=== PATIENT | female | born 1950 | race Caucasian/White ===

== ENCOUNTER → 2017-12-11 10:11 | Outpatient (CLI) | payer OTHER, SELFPAY ==
[2017-12-11 10:38] LABS: Add Manual Diff / Slide Review NO; Basophils Percent Auto 1.2 % (0-2); Eosinophils Percent Auto 9.1 % (2-4); Hematocrit 25.8 % (36-46); Hemoglobin 8.1 g/dL (12.0-16.0); Lymphocytes Percent Auto 20.8 % (25-40); Mean Corpuscular HGB Conc 31.6 % (30-36); Mean Corpuscular Hemoglobin 21.7 PG (26-34); Mean Corpuscular Volume 68.7 fL (80-100); Monocytes Percent Auto 7.5 % (3-14); Neutrophils Absolute Auto 4300 /uL (3000-5900); Neutrophils Percent Auto 61.4 % (50-75); Platelet Count 399 X10^3/uL (150-400); Red Blood Cell Count 3.75 X10^6/uL (4.0-5.2); Red Cell Distribution Width 15.8 % (11.6-14.8)
[2017-12-11 11:50] LABS: Anisocytosis 1+; Hypochromasia 2+; Poikilocytosis 2+; Target Cells 2+
== END ==
PROVIDERS: Family Provider Physician Assistant; PCP Physician Assistant; Visit Provider Physician Assistant
DX: D64.9 Anemia, unspecified (principal)
CPT/HCPCS: 36415; 85025

== ENCOUNTER → 2017-12-14 09:24 | Outpatient (CLI) | payer OTHER, SELFPAY ==
[2017-12-14 10:32] LABS: Add Manual Diff / Slide Review NO; Basophils Percent Auto 0.5 % (0-2); Eosinophils Percent Auto 4.7 % (2-4); Hematocrit 25.5 % (36-46); Lymphocytes Percent Auto 17.8 % (25-40); Mean Corpuscular HGB Conc 31.5 % (30-36); Mean Corpuscular Hemoglobin 21.6 PG (26-34); Mean Corpuscular Volume 68.7 fL (80-100); Monocytes Percent Auto 7.4 % (3-14); Neutrophils Absolute Auto 6200 /uL (3000-5900); Neutrophils Percent Auto 69.6 % (50-75); Platelet Count 411 X10^3/uL (150-400); Red Blood Cell Count 3.72 X10^6/uL (4.0-5.2); White Blood Cell Count 8.8 X10^3/uL (4.5-11.0)
[2017-12-14 10:56] LABS: Anisocytosis 1+; Ovalocytes 1+; Poikilocytosis 1+
[2017-12-14 10:58] LABS: HEMOLYSIS < 15 (0-50); Iron 14 ug/dL (37-170)
[2017-12-14 11:09] LABS: Percent Iron Saturation 3 % (15-50); Total Iron Binding Capacity 442 ug/dL (265-497); Transferrin 360 mg/dL (206-381)
== END ==
PROVIDERS: PCP Physician Assistant; Visit Provider Physician Assistant
DX: D64.9 Anemia, unspecified (principal)
CPT/HCPCS: 36415; 83540; 83550; 85025

== ENCOUNTER → 2018-01-09 10:17 | Outpatient (CLI) | payer OTHER, SELFPAY ==
[2018-01-09 11:24] LABS: Hematocrit 30.6 % (36-46); Hemoglobin 9.8 g/dL (12.0-16.0); Mean Corpuscular Hemoglobin 23.2 PG (26-34); Mean Corpuscular Volume 72.5 fL (80-100); Platelet Count 431 X10^3/uL (150-400); Red Blood Cell Count 4.22 X10^6/uL (4.0-5.2); Red Cell Distribution Width 25.1 % (11.6-14.8); White Blood Cell Count 5.8 X10^3/uL (4.5-11.0)
[2018-01-09 11:41] LABS: Add Manual Diff / Slide Review YES
[2018-01-09 12:04] LABS: Neutrophils Absolute Manual 3654 /uL (3000-5900); Total Cells Counted 100
[2018-01-09 12:05] LABS: Anisocytosis 2+
[2018-01-09 12:06] LABS: Hypochromasia 2+
[2018-01-09 12:07] LABS: Poikilocytosis 1+
== END ==
PROVIDERS: Family Provider Physician Assistant; PCP Physician Assistant; Visit Provider Physician Assistant
DX: D64.9 Anemia, unspecified (principal)
CPT/HCPCS: 36415; 85025

== ENCOUNTER → 2018-05-23 14:36 | Outpatient (CLI) | payer MEDICARE, SELFPAY ==
[2018-05-23 15:20] LABS: Add Manual Diff / Slide Review NO; Eosinophils Percent Auto 3.2 % (2-4); Hematocrit 28.9 % (36-46); Hemoglobin 9.5 g/dL (12.0-16.0); Lymphocytes Percent Auto 25.9 % (25-40); Mean Corpuscular HGB Conc 32.8 % (30-36); Mean Corpuscular Hemoglobin 24.8 PG (26-34); Mean Corpuscular Volume 75.6 fL (80-100); Monocytes Percent Auto 7.7 % (3-14); Neutrophils Absolute Auto 4400 /uL (1500-7000); Neutrophils Percent Auto 62.2 % (50-75); Platelet Count 343 X10^3/uL (150-400); Red Blood Cell Count 3.82 X10^6/uL (4.0-5.2); Red Cell Distribution Width 14.6 % (11.6-14.8)
[2018-05-23 15:31] LABS: Alanine Aminotransferase 23 IU/L (9-52); Albumin 4.2 g/dL (3.5-5.0); Albumin Globulin Ratio 1.6 (1.0-2.8); Alkaline Phosphatase 79 U/L (38-126); Aspartate Aminotransferase 20 IU/L (14-36); Bilirubin Total 0.3 mg/dL (0.2-1.3); Blood Urea Nitrogen 24 mg/dL (7-17); Calcium 9.1 mg/dL (8.4-10.2); Carbon Dioxide 28 mmol/L (22-32); Chloride 98 mmol/L (98-107); Estimated Glomerular Filt Rate 55.1 mL/min (>60); Globulin 2.6 g/dL (1.7-4.1); Glucose 178 mg/dL (80-110); HEMOLYSIS < 15 (0-50); Potassium 4.7 mmol/L (3.4-5.1); Sodium 138 mmol/L (137-145); Total Protein 6.8 g/dL (6.3-8.2)
[2018-05-23 15:58] LABS: HEMOLYSIS < 15 (0-50); Iron 24 ug/dL (37-170)
[2018-05-23 16:09] LABS: Percent Iron Saturation 6 % (15-50); Total Iron Binding Capacity 426 ug/dL (265-497); Transferrin 358 mg/dL (206-381)
== END ==
PROVIDERS: Family Provider Physician Assistant; PCP Physician Assistant; Visit Provider Physician Assistant
DX: I10 Essential (primary) hypertension (principal); D64.9 Anemia, unspecified
CPT/HCPCS: 36415; 80053; 83540; 83550; 85025

== ENCOUNTER 2018-07-16 11:20 | Day surgery (SDC) | payer MEDICARE, SELFPAY ==
[2018-07-16 12:09] VITALS: BP 147/83; PULSE 85; RESP 16; TEMP 37.2; O2SAT 99; BMI 33.5
--- NOTE | 2018-07-16 13:58 | PM.HP.1 ---
History of Present Illness Date Patient Seen: 07/16/18 Time Patient Seen: 13:58 Chief complaint: Colonoscopy [id number] Narrative: Tamra is a wonderful 67-year-old lady who is here for screening colonoscopy. She reports that she has had polyps in the past. Her last colonoscopy was about 12 years ago. Initially, she has had difficulty with anemia in the past several months. She has been treated with iron and has improved significantly. She denies any visible blood in her stool. She denies any change in her bowel habits. She has recently joined weight [employer] in an effort to improve her health and says she feels quite well. Patient History Social History household members: children Family & Social History Social History: household members children Review of Systems Review of Systems All systems reviewed & are unremarkable except as noted in HPI and below Exam Vital Signs (past 8 hours): - 07/16/18 12:09 Temperature 99.0 F Pulse Rate 85 Respiratory Rate 16 Blood Pressure 147/83 H Pulse Oximetry 99 Oxygen Delivery Method Room Air Narrative Exam Narrative: Very pleasant lady in no obvious distress HEENT: Normocephalic and atraumatic, pupils equal round reactive to light accommodation with anicteric sclera lungs: Clear to auscultation bilaterally heart: Regular rate and rhythm without murmur rub or gallop abdomen: Soft, nontender, active bowel sounds extremities: Warm and well perfused and without edema Assessment & Plan Assessment & Plan narrative: Pleasant 67-year-old lady with a personal history of colon polyps and recent problem with anemia who is here for colonoscopy. We discussed the risks and benefits of the procedure the patient expressed desire to complete it today.
[2018-07-16] MEDS: ONDANSETRON 4 MG/2 ML INJ IV (14:10)
[2018-07-16] MEDS: MIDAZOLAM 5 MG/5 ML VIAL IV (14:35)
[2018-07-16] MEDS: fentaNYL 250 MCG/5 ML INJ IV (14:36)
--- NOTE | 2018-07-16 14:44 | PM.OP.1 ---
Operative Date/Time/Diagnoses Date of procedure: 07/16/18 Time of procedure: 14:44 Pre-op diagnosis: Personal history of colon polyp Anemia Post-op diagnosis: same Procedure & Clinicians Procedure: Colonoscopy to the cecum Same procedure as scheduled: Yes Indications: Last colonoscopy approximately 10 years ago Surgeon: Fernanda Scruggs Anesthesia Type: Sedation ( Versed 12 mg; fentanyl 300 mcg) Operative Notes Findings: 1. Excellent prep 2. No polyps or mass lesions 3. Diverticulosis from the colorectal junction to 60 cm from the anal verge. Mixture of large and small pockets with some false passages. No evidence of inflammation. 4. Normal-appearing mucosa without explanation for anemia 5. Grade 1-2 internal hemorrhoids Closure Type: not applicable Specimen(s): none sent Estimated Blood Loss (mL): 0 Procedure in detail: After obtaining informed consent, the patient was brought to the GI suite and placed in the left lateral decubitus position on the examination table. After placement of appropriate monitors, the patient was given incremental doses of Versed and Fentanyl until an appropriate level of sedation was achieved. A time out was held per SCOAP protocol. A digital rectal examination was performed and did not reveal any masses or obstructing lesions. The colonoscope was gently passed into the patient's anus and the entire colon navigated to the level of the cecum with minimal difficulty. Once in the cecum, the scope was withdrawn being sure to go before and beyond all mucosal folds and prominences and get an excellent examination. The findings are noted above. At the level of the rectal vault, the scope was retroflexed and the internal anal canal was examined. The scope was straightened and air aspirated from the colon. The instrument was removed from the patient's body and the procedure was concluded. The patient was allowed to awaken from sedation without difficulty and taken to the post-anesthesia care unit in good condition. total sedation time was 34 min total colonoscopy withdrawal time was 9 min Complications: none Condition: stable Disposition: PACU Plan for aftercare: 1. Discharge to home 2. Plan for next colonoscopy in 5 years due to the patient's history of polyps.
[2018-07-16 14:46] VITALS: BP 127/66; PULSE 80; RESP 12; TEMP 36.9; O2SAT 96
[2018-07-16 14:52] VITALS: BP 118/82; PULSE 82; RESP 15; O2SAT 96
[2018-07-16 14:56] VITALS: BP 121/79; PULSE 80; RESP 16; O2SAT 98
[2018-07-16 15:03] VITALS: BP 110/70; PULSE 83; RESP 15; TEMP 36.6; O2SAT 95
== END 2018-07-16 15:15 | disposition home or self-care (01) ==
PROVIDERS: PCP Physician Assistant; Visit Provider Surgery
PROC: 0DJD8ZZ Inspection of Lower Intestinal Tract, Via Natural or Artificial Opening Endoscopic (ICD-10-PCS; CPT 45378; principal; 2018-07-16 14:00)
DX: Z86.010 Personal history of colon polyps (principal); D64.9 Anemia, unspecified; K57.30 Diverticulosis of large intestine without perforation or abscess without bleeding; K64.1 Second degree hemorrhoids
CPT/HCPCS: G0105; 99152; 99153; J2250; J2405; J3010

== ENCOUNTER → 2018-07-30 12:12 | Outpatient (CLI) | payer MEDICARE, SELFPAY ==
--- NOTE | 2018-07-30 | DI.MG.S_ITS ---
BILATERAL DIGITAL SCREENING MAMMOGRAM 3D/2D WITH CAD: 07/30/2018 CLINICAL: Routine screening. Comparison is made to exams dated: 06/22/2017 mammogram, 06/14/2016 mammogram, and 04/01/2015 mammogram - [facility]. There are scattered fibroglandular elements in both breasts. Current study was also evaluated with a Computer Aided Detection (CAD) system. There are benign calcifications in both breasts. No significant masses, calcifications, or other findings are seen in either breast. There has been no significant interval change. IMPRESSION: There is no mammographic evidence of malignancy. A 1 year screening mammogram is recommended. This exam was interpreted at Station ID: [id number]. NOTE: For mammograms, a report in lay terms will be sent to the patient. Approximately 15% of breast malignancies will not be visualized mammographically. In the management of a palpable breast mass, a negative mammogram must not discourage biopsy of a clinically suspicious lesion. Electronically Signed By: Manan cuenca/lore:07/30/2018 17:17:32 letter sent: Normal Exam ACR BI-RADS Category 2: Benign Finding(s) 3342F
== END ==
PROVIDERS: PCP Physician Assistant; Visit Provider Physician Assistant
DX: Z12.31 Encounter for screening mammogram for malignant neoplasm of breast (principal)
CPT/HCPCS: 77063; 77067

== ENCOUNTER 2020-03-16 18:19 | Emergency (ER) | payer MEDICARE, SELFPAY ==
[2020-03-16] VITALS (11 sets, daily range): BP systolic 113–123; BP diastolic 66–78; PULSE 90–108; RESP 24–40; TEMP 36.9; O2SAT 85–100
--- NOTE | 2020-03-16 18:37 | DI.CT.S_ITS ---
PROCEDURE: CT ANGIO CHEST PE PROTOCOL INDICATIONS: Chest pain, shortness of breath, tachycardia, hypoxia TECHNIQUE: After the administration of intravenous contrast, 2 mm thick sections acquired from the pulmonary apices to the posterior costophrenic angles. 3-dimensional maximum intensity projection (MIP) coronal and sagittal reformats were then acquired through the thorax. For radiation dose reduction, the following was used: automated exposure control, adjustment of mA and/or kV according to patient size. COMPARISON: None. FINDINGS: Image quality: Excellent. Pulmonary arteries: There are filling defects seen within the distal aspects of the bilateral main pulmonary arteries extending into the lobar and segmental branches of the right upper, right middle, and right lower lobes, as well as the left upper and left lower lobes, right greater than left. Lungs and pleura: No evidence of focal pneumonia. Mild diffuse interstitial pulmonary opacity is present, of uncertain acuity. No pleural effusions or pneumothorax. Central and peripheral airways are patent. Mediastinum: Heart size is normal, without pericardial effusion. Calcification of the coronary vasculature. No mediastinal or hilar adenopathy. Thoracic aorta is normal in caliber and enhancement. Esophagus is normal in caliber. Large left hydro knee diaphragmatic hernia containing the entire stomach splenic flexure of colon. Bones and chest wall: No suspicious bony lesions. Ribs and thoracic spine appear intact throughout. Thyroid gland is within normal limits . No axillary or supraclavicular adenopathy. Abdomen: Visualized upper abdominal solid organs appear normal in the early arterial phase of enhancement. IMPRESSION: 1. Bilateral right greater than left pulmonary emboli, as described above. 2. Coronary artery disease. 3. Large left hemidiaphragmatic hernia as described above. Dictated by: Rebecca Kaur M.D. on 03/16/2020 at 20:36 Approved by: Rebecca Kaur M.D. on 03/16/2020 at 20:41
[2020-03-16] MEDS: SODIUM CHLORIDE 0.9% 1,000 ML 125 ML IV (19:01)
[2020-03-16 19:15] LABS: HCO3 ABG 23 mmol/L (22-26); PCO2 ABG 28.4 mmHg (35-45); PO2 ABG 48 mmHg (80-100); TCO2 ABG 24 mmol/L (21-31); pH ABG 7.51 (7.35-7.45)
[2020-03-16 19:16] LABS: Fractionated Inspired Oxygen 21; Oxygen Saturation ABG 88 % (95-100)
[2020-03-16 19:17] LABS: COVID19 -Nasal RAPID Negative (Negative)
[2020-03-16 19:45] LABS: Add Manual Diff / Slide Review NO; Basophils Absolute Auto 100 /uL (0-100); Basophils Percent Auto 0.7 % (0-2); Eosinophils Absolute Auto 0 /uL (0-450); Hematocrit 25.6 % (36-46); Hemoglobin 7.5 g/dL (12.0-16.0); Lymphocytes Absolute Auto 900 /uL (1100-4500); Lymphocytes Percent Auto 9.5 % (25-40); Mean Corpuscular HGB Conc 29.3 % (30-36); Mean Corpuscular Hemoglobin 17.1 PG (26-34); Mean Corpuscular Volume 58.4 fL (80-100); Monocytes Absolute Auto 500 /uL (0-900); Neutrophils Absolute Auto 8100 /uL (1500-7000); Neutrophils Percent Auto 84.8 % (50-75); Platelet Count 243 X10^3/uL (150-400); Red Blood Cell Count 4.39 X10^6/uL (4.0-5.2); Red Cell Distribution Width 19.9 % (11.6-14.8); White Blood Cell Count 9.5 X10^3/uL (4.5-11.0)
--- NOTE | 2020-03-16 19:50 | ED.GENADULT ---
HPI - General Adult General Chief complaint: Shortness of Breath/Dyspnea Stated complaint: Dizziness Time Seen by Provider: 03/16/20 18:36 Source: patient and EMS Mode of arrival: EMS Limitations: no limitations History of Present Illness HPI narrative: 69-year-old female here for evaluation shortness of breath dizziness and lightheadedness. She states that yesterday she generally was not feeling very well. She states she was getting somewhat short of breath and lightheaded with standing but was able to control was of her symptoms by sitting. She says at baseline she is able to walk to the mailbox and back without any problems however the past 24-36 hours she has become very short of breath with doing so. She denies any chest pain. Denies any headache. She has not passed out. No palpitations. She has swelling of her right lower extremity which has been there for the past several days. She states that she normally gets some swelling but it is much worse than what it normally is. Denies any trauma. She states that throughout the day her symptoms become much worse to the point to where she was having much more difficulty with any type of exertion. She has not been eating much today. When her daughter came today she noticed that her mother was not doing well she contacted EMS. Upon arrival EMS reported the patient without oxygen saturation in the 80s. She was put on nasal cannula which the patient states helped her symptoms quite a bit. Related Data Allergies Allergy/AdvReac Type Severity Reaction Status Date / Time morphine Allergy Intermediate Verified 03/16/20 18:29 Review of Systems Constitutional Constitutional: Reports fatigue, Denies fever(s), Denies headache(s) and Reports malaise Eyes Eyes: Denies blurry vision ENT Ears, Nose, Mouth, and Throat: Denies vertigo, Denies dizziness, Denies headache(s), Denies sinus pressure and Denies sore throat Cardiovascular Cardiovascular: Denies chest pain, Reports dyspnea and Reports dyspnea on exertion Respiratory Respiratory: Denies cough, Reports dyspnea and Reports dyspnea on exertion Gastrointestinal Gastrointestinal: Denies abdominal pain, Denies nausea and Denies vomiting Genitourinary Genitourinary: Denies dysuria Genitourinary: Denies dysuria Musculoskeletal Musculoskeletal: Denies back pain and Denies myalgias Comments: Right leg swelling Integumentary/Breasts Skin/Breast: Denies lesions and Denies rash Neurologic Neurologic: Denies behavioral changes, Denies confusion, Denies vertigo, Denies dizziness and Denies headache(s) Psychiatric Psychiatric: Denies behavioral changes and Denies confusion Endocrine Endocrine: Reports fatigue Hematologic/Lymphatic Hematologic/Lymphatic: Denies easy bleeding and Denies easy bruising Allergic/Immunologic Allergic/Immunologic: Denies urticaria Patient History Surgical History No pertinent past surgical history (Acute) Social History household members: children Smoking Status: Never smoker Smoking Status: Never smoker alcohol intake frequency: 0-2 drinks per day Substance Use Type: does not use Exam Initial Vital Signs Initial Vital Signs: Vital Signs Pulse Rate 108 H 03/16/20 18:20 Respiratory Rate 27 H 03/16/20 18:20 Blood Pressure 113/78 03/16/20 18:20 Pulse Oximetry 85 L 03/16/20 18:20 Const General: cooperative, comfortable and well developed Limitations: mental status not altered HENGA Head: normal to inspection and normocephalic Resp Effort & Inspection: no cough, not labored and tachypneic Auscultation: clear to auscultation bilaterally Cardio Rate: tachycardic Rhythm: regular rhythm GI Inspection: non-distended Palpation: soft and No tender Skin Lesions: no lesions Rashes: no rashes Neuro General: patient alert, patient awake and patient oriented x3 Cognition: normal cognition Speech: speech normal Sensory Exam: no sensory deficits noted Extrem General: edema (Right lower extremity) Psych Appearance: grossly normal and well kempt Scores GCS [place] coma scale eye opening: Spontaneous Gege coma scale verbal response: Orientated [place] coma scale motor response: Obey commands [place] coma scale total score: 15 Course Orders Ordered: ED Orders 03/16/20 18:30 Arterial Blood Gas Stat Blood Culture Stat EKG-12 Lead Stat 03/16/20 18:37 CT angio chest PE protocol Stat 03/16/20 18:50 COVID19 -ED/INPAT/OR/L&D Stat 03/16/20 18:57 ABG [Arterial Blood Gas] Stat 03/16/20 19:24 C-Reactive Protein Quant Stat Complete Blood Count AUTO DIFF Stat Comprehensive Metabolic Panel Stat D Dimer Stat Ferritin Stat Lactate (Lactic Acid) Stat Lactate Dehydrogenase Stat NT-proBNP (BNP-Adult 18+) Stat Partial Thromboplastin Time Stat Procalcitonin Stat Troponin & CK Cardiac Panel Stat Type and Screen Stat 03/16/20 21:42 NT-proBNP (BNP-Adult 18+) Stat Troponin & CK Cardiac Panel Stat 03/16/20 22:56 Venous Blood Gas Stat 03/16/20 23:45 Lactate (Lactic Acid) Stat NT-proBNP (BNP-Adult 18+) Stat Troponin I Stat 03/17/20 03:00 PTT [Partial Thromboplastin Time] Q6H 03/17/20 09:00 PTT [Partial Thromboplastin Time] Q6H 03/17/20 15:00 PTT [Partial Thromboplastin Time] Q6H Sodium Chloride (Normal Saline 0.9%) 1,000 mls @ 125 mls/hr IV CONT DAVID Last Admin: 03/16/20 19:01 Dose: 125 mls/hr Documented by: CASANDRA Alteplase, Recombinant 100 mg/ (Miscellaneous) 100 mls @ 50 mls/hr IV NOW ONE Stop: 03/17/20 02:45 Discontinued Medications Enoxaparin Sodium (Lovenox) 100 mg 1 mg/kg (100 mg) SUBCUT NOW ONE Stop: 03/16/20 22:58 Last Admin: 03/16/20 23:00 Dose: 100 mg Documented by: ROBIN Heparin Sodium (Porcine) (Heparin) 7,500 unit IV NOW ONE Stop: 03/16/20 20:47 Last Admin: 03/16/20 21:05 Dose: 7,500 unit Documented by: ROBIN Heparin Sodium/Dextrose (Heparin Drip) 25,000 unit in 500 mls @ 24 mls/hr IV CONT DAVID; Protocol Last Titration: 03/16/20 23:04 Dose: 0 units/hr, 0 mls/hr Documented by: Admin: 03/16/20 21:05 Dose: 1,000 units/hr, 20 mls/hr Documented by: ROBIN Ondansetron HCl (Zofran) 4 mg IV NOW ONE Stop: 03/17/20 00:47 Last Admin: 03/17/20 00:53 Dose: 4 mg Documented by: ROBIN Vital Signs Vital signs: Vital Signs - 8 hr 03/16/20 18:20 03/16/20 18:55 03/16/20 19:00 Temperature 98.4 F Pulse Rate 108 H 102 H 101 H Respiratory Rate 27 H 28 H 31 H Blood Pressure 113/78 Pulse Oximetry 85 L 97 96 03/16/20 19:15 03/16/20 19:30 03/16/20 19:45 Temperature Pulse Rate 97 H 97 H 99 H Respiratory Rate 33 H 29 H 40 H Blood Pressure Pulse Oximetry 99 99 97 03/16/20 20:00 03/16/20 20:30 03/16/20 21:00 Temperature Pulse Rate 95 H 96 H 93 H Respiratory Rate 24 27 H 26 H Blood Pressure Pulse Oximetry 91 91 100 03/16/20 21:29 03/16/20 22:25 Temperature Pulse Rate 90 Respiratory Rate 25 H Blood Pressure 123/66 Pulse Oximetry 95 99 Medical Decision Making Lab Data Lab results reviewed: Yes I reviewed the patient's lab results. Result diagrams: 03/16/20 19:24 03/16/20 19:24 Labs: Lab Results 03/16/20 03/16/20 03/16/20 Range/Units 18:50 18:57 19:24 WBC (4.5-11.0) X10^3/uL RBC (4.0-5.2) X10^6/uL Hgb (12.0-16.0) g/dL Hct (36-46) % MCV (80-100) fL MCH (26-34) PG MCHC (30-36) % RDW (11.6-14.8) % Plt Count (150-400) X10^3/uL Neut % (Auto) (50-75) % Lymph % (Auto) (25-40) % [place] % (Auto) (3-14) % Eos % (Auto) (2-4) % Baso % (Auto) (0-2) % Neut # (Auto) (4837-6192) /uL Lymph # (Auto) (6989-0505) /uL [place] # (Auto) (0-900) /uL Eos # (Auto) (0-450) /uL Baso # (Auto) (0-100) /uL RBC Morphology Polychromasia Hypochromasia Microcytosis APTT (26.4-36.2) SECONDS D-Dimer 1658 H (<230) ng/mL ABG pH 7.51 H (7.35-7.45) ABG pCO2 28.4 L (35-45) mmHg ABG pO2 48 L* (80-100) mmHg ABG HCO3 23 (22-26) mmol/L ABG Total CO2 24 (21-31) mmol/L ABG O2 Saturation 88 L (95-100) % ABG Base Excess 0.0 (-2-2) mmol/L VBG pH (7.33-7.43) VBG pCO2 (45-50) mmHg VBG pO2 (35-45) mmHg VBG HCO3 (23-28) mmol/L VBG Total CO2 (24-29) mmol/L VBG O2 Saturation (70-75) % VBG Base Excess (0-4) mmol/L FiO2 21 Sodium (137-145) mmol/L Potassium (3.4-5.1) mmol/L Chloride (98-107) mmol/L Carbon Dioxide (22-32) mmol/L BUN (7-17) mg/dL Creatinine (0.52-1.04) mg/dL Estimated GFR (>60) mL/min BUN/Creatinine Ratio (6-22) Glucose (80-110) mg/dL Lactate (0.7-2.1) mmol/L Calcium (8.4-10.2) mg/dL Ferritin (11-264) ng/mL Total Bilirubin (0.2-1.3) mg/dL AST (14-36) IU/L ALT (<35) IU/L Alkaline Phosphatase (38-126) U/L Lactate Dehydrogenase (313-618) U/L Total Creatine Kinase (30-135) U/L CK-MB (CK-2) CK-MB (CK-2) Rel Index Troponin I (0.01-0.034) ng/mL C-Reactive Protein (<1.0) mg/dL NT-Pro-B Natriuret Pep (<125) pg/mL Total Protein (6.3-8.2) g/dL Albumin (3.5-5.0) g/dL Globulin (1.7-4.1) g/dL Albumin/Globulin Ratio (1.0-2.8) Procalcitonin (<0.5) ng/mL COVID-19 PCR Negative (Negative) Blood Type Antibody Screen 03/16/20 03/16/20 03/16/20 Range/Units 19:24 19:24 19:24 WBC 9.5 (4.5-11.0) X10^3/uL RBC 4.39 (4.0-5.2) X10^6/uL Hgb 7.5 L (12.0-16.0) g/dL Hct 25.6 L (36-46) % MCV 58.4 L (80-100) fL MCH 17.1 L (26-34) PG MCHC 29.3 L (30-36) % RDW 19.9 H (11.6-14.8) % Plt Count 243 (150-400) X10^3/uL Neut % (Auto) 84.8 H (50-75) % Lymph % (Auto) 9.5 L (25-40) % [place] % (Auto) 5.0 (3-14) % Eos % (Auto) 0.0 L (2-4) % Baso % (Auto) 0.7 (0-2) % Neut # (Auto) 8100 H (7927-0212) /uL Lymph # (Auto) 900 L (6159-8906) /uL [place] # (Auto) 500 (0-900) /uL Eos # (Auto) 0 (0-450) /uL Baso # (Auto) 100 (0-100) /uL RBC Morphology See below Polychromasia 1+ H Hypochromasia 3+ H Microcytosis 3+ H APTT (26.4-36.2) SECONDS D-Dimer (<230) ng/mL ABG pH (7.35-7.45) ABG pCO2 (35-45) mmHg ABG pO2 (80-100) mmHg ABG HCO3 (22-26) mmol/L ABG Total CO2 (21-31) mmol/L ABG O2 Saturation (95-100) % ABG Base Excess (-2-2) mmol/L VBG pH (7.33-7.43) VBG pCO2 (45-50) mmHg VBG pO2 (35-45) mmHg VBG HCO3 (23-28) mmol/L VBG Total CO2 (24-29) mmol/L VBG O2 Saturation (70-75) % VBG Base Excess (0-4) mmol/L FiO2 Sodium 132 L (137-145) mmol/L Potassium 4.1 (3.4-5.1) mmol/L Chloride 96 L (98-107) mmol/L Carbon Dioxide 27 (22-32) mmol/L BUN 24 H (7-17) mg/dL Creatinine 1.12 H (0.52-1.04) mg/dL Estimated GFR 48.1 L (>60) mL/min BUN/Creatinine Ratio 21.4 (6-22) Glucose 323 H (80-110) mg/dL Lactate (0.7-2.1) mmol/L Calcium 9.7 (8.4-10.2) mg/dL Ferritin 7 L (11-264) ng/mL Total Bilirubin 0.4 (0.2-1.3) mg/dL AST 21 (14-36) IU/L ALT 14 (<35) IU/L Alkaline Phosphatase 101 (38-126) U/L Lactate Dehydrogenase 585 (313-618) U/L Total Creatine Kinase 38 (30-135) U/L CK-MB (CK-2) TNP CK-MB (CK-2) Rel Index TNP Troponin I 0.459 H* (0.01-0.034) ng/mL C-Reactive Protein 2.7 H (<1.0) mg/dL NT-Pro-B Natriuret Pep 2830 H (<125) pg/mL Total Protein 7.7 (6.3-8.2) g/dL Albumin 4.3 (3.5-5.0) g/dL Globulin 3.4 (1.7-4.1) g/dL Albumin/Globulin Ratio 1.3 (1.0-2.8) Procalcitonin 0.07 (<0.5) ng/mL COVID-19 PCR (Negative) Blood Type Antibody Screen 03/16/20 03/16/20 03/16/20 Range/Units 19:24 19:24 19:24 WBC (4.5-11.0) X10^3/uL RBC (4.0-5.2) X10^6/uL Hgb (12.0-16.0) g/dL Hct (36-46) % MCV (80-100) fL MCH (26-34) PG MCHC (30-36) % RDW (11.6-14.8) % Plt Count (150-400) X10^3/uL Neut % (Auto) (50-75) % Lymph % (Auto) (25-40) % [place] % (Auto) (3-14) % Eos % (Auto) (2-4) % Baso % (Auto) (0-2) % Neut # (Auto) (5605-0291) /uL Lymph # (Auto) (2780-1108) /uL [place] # (Auto) (0-900) /uL Eos # (Auto) (0-450) /uL Baso # (Auto) (0-100) /uL RBC Morphology Polychromasia Hypochromasia Microcytosis APTT 29 (26.4-36.2) SECONDS D-Dimer (<230) ng/mL ABG pH (7.35-7.45) ABG pCO2 (35-45) mmHg ABG pO2 (80-100) mmHg ABG HCO3 (22-26) mmol/L ABG Total CO2 (21-31) mmol/L ABG O2 Saturation (95-100) % ABG Base Excess (-2-2) mmol/L VBG pH (7.33-7.43) VBG pCO2 (45-50) mmHg VBG pO2 (35-45) mmHg VBG HCO3 (23-28) mmol/L VBG Total CO2 (24-29) mmol/L VBG O2 Saturation (70-75) % VBG Base Excess (0-4) mmol/L FiO2 Sodium (137-145) mmol/L Potassium (3.4-5.1) mmol/L Chloride (98-107) mmol/L Carbon Dioxide (22-32) mmol/L BUN (7-17) mg/dL Creatinine (0.52-1.04) mg/dL Estimated GFR (>60) mL/min BUN/Creatinine Ratio (6-22) Glucose (80-110) mg/dL Lactate 2.5 H (0.7-2.1) mmol/L Calcium (8.4-10.2) mg/dL Ferritin (11-264) ng/mL Total Bilirubin (0.2-1.3) mg/dL AST (14-36) IU/L ALT (<35) IU/L Alkaline Phosphatase (38-126) U/L Lactate Dehydrogenase (313-618) U/L Total Creatine Kinase (30-135) U/L CK-MB (CK-2) CK-MB (CK-2) Rel Index Troponin I (0.01-0.034) ng/mL C-Reactive Protein (<1.0) mg/dL NT-Pro-B Natriuret Pep (<125) pg/mL Total Protein (6.3-8.2) g/dL Albumin (3.5-5.0) g/dL Globulin (1.7-4.1) g/dL Albumin/Globulin Ratio (1.0-2.8) Procalcitonin (<0.5) ng/mL COVID-19 PCR (Negative) Blood Type A Positive Antibody Screen Negative 03/16/20 03/16/20 03/16/20 Range/Units 21:42 21:42 21:42 WBC (4.5-11.0) X10^3/uL RBC (4.0-5.2) X10^6/uL Hgb (12.0-16.0) g/dL Hct (36-46) % MCV (80-100) fL MCH (26-34) PG MCHC (30-36) % RDW (11.6-14.8) % Plt Count (150-400) X10^3/uL Neut % (Auto) (50-75) % Lymph % (Auto) (25-40) % [place] % (Auto) (3-14) % Eos % (Auto) (2-4) % Baso % (Auto) (0-2) % Neut # (Auto) (9208-6317) /uL Lymph # (Auto) (5102-4097) /uL [place] # (Auto) (0-900) /uL Eos # (Auto) (0-450) /uL Baso # (Auto) (0-100) /uL RBC Morphology Polychromasia Hypochromasia Microcytosis APTT (26.4-36.2) SECONDS D-Dimer (<230) ng/mL ABG pH (7.35-7.45) ABG pCO2 (35-45) mmHg ABG pO2 (80-100) mmHg ABG HCO3 (22-26) mmol/L ABG Total CO2 (21-31) mmol/L ABG O2 Saturation (95-100) % ABG Base Excess (-2-2) mmol/L VBG pH (7.33-7.43) VBG pCO2 (45-50) mmHg VBG pO2 (35-45) mmHg VBG HCO3 (23-28) mmol/L VBG Total CO2 (24-29) mmol/L VBG O2 Saturation (70-75) % VBG Base Excess (0-4) mmol/L FiO2 Sodium (137-145) mmol/L Potassium (3.4-5.1) mmol/L Chloride (98-107) mmol/L Carbon Dioxide (22-32) mmol/L BUN (7-17) mg/dL Creatinine (0.52-1.04) mg/dL Estimated GFR (>60) mL/min BUN/Creatinine Ratio (6-22) Glucose (80-110) mg/dL Lactate 1.4 Cancelled (0.7-2.1) mmol/L Calcium (8.4-10.2) mg/dL Ferritin (11-264) ng/mL Total Bilirubin (0.2-1.3) mg/dL AST (14-36) IU/L ALT (<35) IU/L Alkaline Phosphatase (38-126) U/L Lactate Dehydrogenase (313-618) U/L Total Creatine Kinase 42 (30-135) U/L CK-MB (CK-2) TNP CK-MB (CK-2) Rel Index TNP Troponin I 0.489 H* (0.01-0.034) ng/mL C-Reactive Protein (<1.0) mg/dL NT-Pro-B Natriuret Pep 3460 H (<125) pg/mL Total Protein (6.3-8.2) g/dL Albumin (3.5-5.0) g/dL Globulin (1.7-4.1) g/dL Albumin/Globulin Ratio (1.0-2.8) Procalcitonin (<0.5) ng/mL COVID-19 PCR (Negative) Blood Type Antibody Screen 03/16/20 03/16/20 03/16/20 Range/Units 22:56 23:45 23:45 WBC (4.5-11.0) X10^3/uL RBC (4.0-5.2) X10^6/uL Hgb (12.0-16.0) g/dL Hct (36-46) % MCV (80-100) fL MCH (26-34) PG MCHC (30-36) % RDW (11.6-14.8) % Plt Count (150-400) X10^3/uL Neut % (Auto) (50-75) % Lymph % (Auto) (25-40) % [place] % (Auto) (3-14) % Eos % (Auto) (2-4) % Baso % (Auto) (0-2) % Neut # (Auto) (5831-6692) /uL Lymph # (Auto) (3554-1427) /uL [place] # (Auto) (0-900) /uL Eos # (Auto) (0-450) /uL Baso # (Auto) (0-100) /uL RBC Morphology Polychromasia Hypochromasia Microcytosis APTT (26.4-36.2) SECONDS D-Dimer (<230) ng/mL ABG pH (7.35-7.45) ABG pCO2 (35-45) mmHg ABG pO2 (80-100) mmHg ABG HCO3 (22-26) mmol/L ABG Total CO2 (21-31) mmol/L ABG O2 Saturation (95-100) % ABG Base Excess (-2-2) mmol/L VBG pH 7.45 H (7.33-7.43) VBG pCO2 35.6 L (45-50) mmHg VBG pO2 35 (35-45) mmHg VBG HCO3 25 (23-28) mmol/L VBG Total CO2 26 (24-29) mmol/L VBG O2 Saturation 71 (70-75) % VBG Base Excess 0.0 (0-4) mmol/L FiO2 Sodium (137-145) mmol/L Potassium (3.4-5.1) mmol/L Chloride (98-107) mmol/L Carbon Dioxide (22-32) mmol/L BUN (7-17) mg/dL Creatinine (0.52-1.04) mg/dL Estimated GFR (>60) mL/min BUN/Creatinine Ratio (6-22) Glucose (80-110) mg/dL Lactate 1.4 (0.7-2.1) mmol/L Calcium (8.4-10.2) mg/dL Ferritin (11-264) ng/mL Total Bilirubin (0.2-1.3) mg/dL AST (14-36) IU/L ALT (<35) IU/L Alkaline Phosphatase (38-126) U/L Lactate Dehydrogenase (313-618) U/L Total Creatine Kinase (30-135) U/L CK-MB (CK-2) CK-MB (CK-2) Rel Index Troponin I 0.533 H* (0.01-0.034) ng/mL C-Reactive Protein (<1.0) mg/dL NT-Pro-B Natriuret Pep 4500 H (<125) pg/mL Total Protein (6.3-8.2) g/dL Albumin (3.5-5.0) g/dL Globulin (1.7-4.1) g/dL Albumin/Globulin Ratio (1.0-2.8) Procalcitonin (<0.5) ng/mL COVID-19 PCR (Negative) Blood Type Antibody Screen Imaging Data CT scan - chest: Radiologist's Impression: [place] [address] CT Scan Report Signed Patient: Yasmeen Garza [facility]#: [id number] : 1950Acct:[id number] Age/Sex: 69 / FDate of Service: 03/16/20 Loc: ED Accession Number: [id number] Procedure: CT angio chest PE protocol Ordering Provider: Arvind Dominguez D.O. PROCEDURE: CT ANGIO CHEST PE PROTOCOL INDICATIONS: Chest pain, shortness of breath, tachycardia, hypoxia TECHNIQUE: After the administration of intravenous contrast, 2 mm thick sections acquired from the pulmonary apices to the posterior costophrenic angles. 3-dimensional maximum intensity projection (MIP) coronal and sagittal reformats were then acquired through the thorax. For radiation dose reduction, the following was used: automated exposure control, adjustment of mA and/or kV according to patient size. COMPARISON: None. FINDINGS: Image quality: Excellent. Pulmonary arteries: There are filling defects seen within the distal aspects of the bilateral main pulmonary arteries extending into the lobar and segmental branches of the right upper, right middle, and right lower lobes, as well as the left upper and left lower lobes, right greater than left. Lungs and pleura: No evidence of focal pneumonia. Mild diffuse interstitial pulmonary opacity is present, of uncertain acuity. No pleural effusions or pneumothorax. Central and peripheral airways are patent. Mediastinum: Heart size is normal, without pericardial effusion. Calcification of the coronary vasculature. No mediastinal or hilar adenopathy. Thoracic aorta is normal in caliber and enhancement. Esophagus is normal in caliber. Large left hydro knee diaphragmatic hernia containing the entire stomach splenic flexure of colon. Bones and chest wall: No suspicious bony lesions. Ribs and thoracic spine appear intact throughout. Thyroid gland is within normal limits . No axillary or supraclavicular adenopathy. Abdomen: Visualized upper abdominal solid organs appear normal in the early arterial phase of enhancement. IMPRESSION: 1. Bilateral right greater than left pulmonary emboli, as described above. 2. Coronary artery disease. 3. Large left hemidiaphragmatic hernia as described above. Dictated by: Rebecca Kaur M.D. on 03/16/2020 at 20:36 Approved by: Rebecca Kaur M.D. on 03/16/2020 at 20:41 ECG Data Attestation: I personally reviewed and interpreted this ECG as follows: Prior ECG tracings: not available for review Interpretation: Sinus tachycardia Ventricular rate 100 Normal axis Normal QRS Normal QTC No ST T wave changes MDM Narrative Medical decision making narrative: Patient arrived tachypneic and hypoxic. Her hypoxia improved by oxygen by nasal cannula. She never described any chest discomfort. Never hypotensive. Tachycardic upon arrival but this improved during her stay. She does have right lower extremity swelling. Her zabala virus test was negative. CTA shows bilateral pulmonary embolisms. She also has an elevated troponin and elevated BNP. Upon repeated these levels were increasing. Patient was initially started on heparin however after discussion with Dr. Garcia cardiac ICU provider who recommended switching to Lovenox. She was given 1 milligram/kilogram subq and heparin was discontinued. Considered sending the patient by air however the aircraft was unable to land in the local area given the weather and was also concerned about her hypoxia in the on pressurized atmosphere of the aircraft. We will send the patient by ground. She has been stable during her time here in the ER. Patient is stable for transport. I did discuss the transport and the diagnosis with the patient her daughter bedside. They expressed understanding agreement. Discharge Plan Departure Patient Disposition: [facility] Clinical Impression: Pulmonary embolism, Hypoxia, Anemia Referrals: Mitali Pagan PA-C [Primary Care Provider] -
[2020-03-16 19:58] LABS: Alanine Aminotransferase 14 IU/L (<35); Albumin 4.3 g/dL (3.5-5.0); Albumin Globulin Ratio 1.3 (1.0-2.8); Alkaline Phosphatase 101 U/L (38-126); Aspartate Aminotransferase 21 IU/L (14-36); BUN Creatinine Ratio 21.4 (6-22); Bilirubin Total 0.4 mg/dL (0.2-1.3); Blood Urea Nitrogen 24 mg/dL (7-17); Calcium 9.7 mg/dL (8.4-10.2); Carbon Dioxide 27 mmol/L (22-32); Chloride 96 mmol/L (98-107); Creatine Kinase 38 U/L (30-135); Estimated Glomerular Filt Rate 48.1 mL/min (>60); Globulin 3.4 g/dL (1.7-4.1); Glucose 323 mg/dL (80-110); HEMOLYSIS < 15 (0-50); Potassium 4.1 mmol/L (3.4-5.1); Sodium 132 mmol/L (137-145); Total Protein 7.7 g/dL (6.3-8.2)
[2020-03-16 19:59] LABS: Lactate (Lactic Acid) 2.5 mmol/L (0.7-2.1)
[2020-03-16 20:01] LABS: Hypochromasia 3+; Microcytosis 3+; Polychromasia 1+
[2020-03-16 20:07] LABS: D Dimer 1658 ng/mL (<230)
[2020-03-16 20:10] LABS: NT-proBNP (BNP-Adult 18+) 2830 pg/mL (<125)
[2020-03-16 20:13] LABS: Procalcitonin 0.07 ng/mL (<0.5)
[2020-03-16 20:33] LABS: Ferritin 7 ng/mL (11-264)
[2020-03-16 20:40] LABS: Troponin I 0.459 ng/mL (0.01-0.034)
[2020-03-16 20:57] LABS: PTT Partial Thromboplastin Tim 29 SECONDS (26.4-36.2)
[2020-03-16 20:58] LABS: C-Reactive Protein Quant 2.7 mg/dL (<1.0); Lactate Dehydrogenase 585 U/L (313-618)
[2020-03-16] MEDS: HEPARIN 5,000 UNIT/ML VIAL 7500 UNIT IV (21:05)
[2020-03-16] MEDS: HEPARIN DRIP 25,000 UNIT/500 ML IV.SOLN 20 UNIT IV (21:05)
[2020-03-16 21:30] LABS: Reflexed Lactate in 2 Hours Y
[2020-03-16 22:02] LABS: Lactate 2HR (Lactic Acid Rflx) 1.4 mmol/L (0.7-2.1)
[2020-03-16] MEDS: ENOXAPARIN 100 MG/ML SYRINGE SUBCUT (23:00)
[2020-03-16 23:03] LABS: Creatine Kinase 42 U/L (30-135)
[2020-03-16 23:17] LABS: NT-proBNP (BNP-Adult 18+) 3460 pg/mL (<125)
[2020-03-16 23:27] LABS: Troponin I 0.489 ng/mL (0.01-0.034)
[2020-03-16 23:50] LABS: HCO3 VBG 25 mmol/L (23-28); PCO2 VBG 35.6 mmHg (45-50); PO2 VBG 35 mmHg (35-45); Total CO2 VBG 26 mmol/L (24-29); pH VBG 7.45 (7.33-7.43)
[2020-03-16 23:51] LABS: Oxygen Saturation VBG 71 % (70-75)
[2020-03-17 00:03] LABS: Lactate (Lactic Acid) 1.4 mmol/L (0.7-2.1)
[2020-03-17 00:17] LABS: NT-proBNP (BNP-Adult 18+) 4500 pg/mL (<125)
[2020-03-17 00:19] LABS: Troponin I 0.533 ng/mL (0.01-0.034)
[2020-03-17] MEDS: ONDANSETRON 4 MG/2 ML INJ IV (00:53)
[2020-03-17 01:01] VITALS: BP 136/69; PULSE 96; RESP 25; O2SAT 95
[2020-03-17] MEDS: ALTEPLASE IV (01:10)
[2020-03-17] MEDS: ISOOSMOTIC VEHICLE IV (01:10)
--- NOTE | 2020-03-17 01:16 | PC.NURSE ---
TPA NOT administered; mixed and given to EMS by MD Dominguez with criteria for use.
== END 2020-03-17 01:17 | disposition short-term general hospital (02) ==
PROVIDERS: Emergency Provider Emergency Medicine; PCP Physician Assistant
DX: I26.99 Other pulmonary embolism without acute cor pulmonale (principal); R09.02 Hypoxemia; D64.9 Anemia, unspecified; R42 Dizziness and giddiness; R60.9 Edema, unspecified; R00.0 Tachycardia, unspecified
CPT/HCPCS: 36415; 36600; 71275; 80053; 82550; 82553; 82728; 82805; 83605; 83615; 83880; 84145; 84484; 85025; 85379; 85730; 86140; 86850; 86900; 86901; 87635; 93005; 96361; 96365; 96366; 96372; 96375; 99285; 99291; 99292; J1644; J1650; J2405; J2997; Q9967

== ENCOUNTER → 2020-04-02 14:49 | Outpatient (ROUT) | payer MEDICARE, SELFPAY ==
[2020-04-02 14:55] LABS: Add Manual Diff / Slide Review NO; Basophils Absolute Auto 100 /uL (0-100); Basophils Percent Auto 1.1 % (0-2); Eosinophils Absolute Auto 100 /uL (0-450); Eosinophils Percent Auto 1.5 % (2-4); Hematocrit 27.7 % (36-46); Hemoglobin 8.4 g/dL (12.0-16.0); Lymphocytes Absolute Auto 1500 /uL (1100-4500); Lymphocytes Percent Auto 18.4 % (25-40); Mean Corpuscular HGB Conc 30.4 % (30-36); Mean Corpuscular Hemoglobin 19.7 PG (26-34); Mean Corpuscular Volume 64.8 fL (80-100); Monocytes Absolute Auto 700 /uL (0-900); Monocytes Percent Auto 8.4 % (3-14); Neutrophils Absolute Auto 5700 /uL (1500-7000); Neutrophils Percent Auto 70.6 % (50-75); Platelet Count 640 X10^3/uL (150-400); Red Blood Cell Count 4.28 X10^6/uL (4.0-5.2); Red Cell Distribution Width 27.7 % (11.6-14.8); White Blood Cell Count 8.1 X10^3/uL (4.5-11.0)
[2020-04-02 15:08] LABS: HEMOLYSIS < 15 (0-50); Iron 18 ug/dL (37-170)
[2020-04-02 15:10] LABS: Alanine Aminotransferase 10 IU/L (<35); Albumin 3.4 g/dL (3.5-5.0); Albumin Globulin Ratio 1.2 (1.0-2.8); Alkaline Phosphatase 99 U/L (38-126); Aspartate Aminotransferase 17 IU/L (14-36); BUN Creatinine Ratio 17.6 (6-22); Bilirubin Total 0.4 mg/dL (0.2-1.3); Blood Urea Nitrogen 13 mg/dL (7-17); Calcium 9.3 mg/dL (8.4-10.2); Carbon Dioxide 35 mmol/L (22-32); Chloride 92 mmol/L (98-107); Estimated Glomerular Filt Rate > 60.0 mL/min (>60); Globulin 2.8 g/dL (1.7-4.1); Glucose 187 mg/dL (80-110); HEMOLYSIS < 15 (0-50); Potassium 4.9 mmol/L (3.4-5.1); Sodium 131 mmol/L (137-145); Total Protein 6.2 g/dL (6.3-8.2)
[2020-04-02 15:15] LABS: Hypochromasia 2+; Microcytosis 3+; Poikilocytosis 1+
[2020-04-02 15:18] LABS: NT-proBNP (BNP-Adult 18+) 295 pg/mL (<125); Percent Iron Saturation 5 % (15-50); Total Iron Binding Capacity 362 ug/dL (265-497); Transferrin 270 mg/dL (206-381)
[2020-04-02 15:44] LABS: Ferritin 23 ng/mL (11-264)
== END ==
PROVIDERS: PCP Physician Assistant; Visit Provider Physician Assistant
DX: D64.9 Anemia, unspecified (principal); I26.99 Other pulmonary embolism without acute cor pulmonale; R73.9 Hyperglycemia, unspecified; R60.9 Edema, unspecified
CPT/HCPCS: 80053; 82728; 83540; 83550; 83735; 83880; 85025

== ENCOUNTER → 2020-04-13 11:54 | Outpatient (ROUT) | payer MEDICARE, SELFPAY ==
[2020-04-13 11:59] LABS: Hematocrit 30.6 % (36-46); Hemoglobin 9.4 g/dL (12.0-16.0); Mean Corpuscular HGB Conc 30.7 % (30-36); Mean Corpuscular Hemoglobin 20.2 PG (26-34); Platelet Count 407 X10^3/uL (150-400); Red Blood Cell Count 4.64 X10^6/uL (4.0-5.2); Red Cell Distribution Width 28.5 % (11.6-14.8); White Blood Cell Count 6.5 X10^3/uL (4.5-11.0)
[2020-04-13 12:38] LABS: Neutrophils Absolute Manual 3640 /uL (3000-5900); Total Cells Counted 100
[2020-04-13 12:39] LABS: Hypochromasia 2+; Microcytosis 3+
[2020-04-13 12:40] LABS: Anisocytosis 3+
[2020-04-13 12:41] LABS: Poikilocytosis 1+
== END ==
PROVIDERS: PCP Physician Assistant; Visit Provider Physician Assistant
DX: I26.99 Other pulmonary embolism without acute cor pulmonale (principal); D64.9 Anemia, unspecified
CPT/HCPCS: 85025

== ENCOUNTER → 2020-05-07 11:49 | Outpatient (CLI) | payer MEDICARE, SELFPAY ==
[2020-05-07 12:49] LABS: Reticulocyte Count, Percent 1.3 % (1.06-2.63)
[2020-05-07 12:51] LABS: Add Manual Diff / Slide Review NO; Basophils Absolute Auto 100 /uL (0-100); Basophils Percent Auto 0.9 % (0-2); Eosinophils Absolute Auto 100 /uL (0-450); Eosinophils Percent Auto 1.9 % (2-4); Hematocrit 35.8 % (36-46); Hemoglobin 11.3 g/dL (12.0-16.0); Lymphocytes Absolute Auto 1400 /uL (1100-4500); Lymphocytes Percent Auto 23.2 % (25-40); Mean Corpuscular HGB Conc 31.5 % (30-36); Mean Corpuscular Hemoglobin 22.6 PG (26-34); Mean Corpuscular Volume 71.8 fL (80-100); Monocytes Absolute Auto 400 /uL (0-900); Monocytes Percent Auto 5.9 % (3-14); Neutrophils Absolute Auto 4200 /uL (1500-7000); Neutrophils Percent Auto 68.1 % (50-75); Platelet Count 361 X10^3/uL (150-400); Red Blood Cell Count 4.99 X10^6/uL (4.0-5.2); Red Cell Distribution Width 32.6 % (11.6-14.8); White Blood Cell Count 6.2 X10^3/uL (4.5-11.0)
[2020-05-07 12:58] LABS: Alanine Aminotransferase 16 IU/L (<35); Albumin 4.5 g/dL (3.5-5.0); Albumin Globulin Ratio 1.4 (1.0-2.8); Alkaline Phosphatase 70 U/L (38-126); Aspartate Aminotransferase 20 IU/L (14-36); BUN Creatinine Ratio 14.4 (6-22); Bilirubin Total 0.3 mg/dL (0.2-1.3); Blood Urea Nitrogen 16 mg/dL (7-17); Calcium 9.8 mg/dL (8.4-10.2); Carbon Dioxide 30 mmol/L (22-32); Chloride 94 mmol/L (98-107); Estimated Glomerular Filt Rate 48.6 mL/min (>60); Globulin 3.3 g/dL (1.7-4.1); Glucose 174 mg/dL (80-110); HEMOLYSIS < 15 (0-50); Potassium 3.2 mmol/L (3.4-5.1); Sodium 135 mmol/L (137-145); Total Protein 7.8 g/dL (6.3-8.2)
[2020-05-07 13:06] LABS: HEMOLYSIS < 15 (0-50); Iron 47 ug/dL (37-170)
[2020-05-07 13:11] LABS: Dimorphic RBC 2
[2020-05-07 13:19] LABS: Percent Iron Saturation 11 % (15-50); Total Iron Binding Capacity 419 ug/dL (265-497); Transferrin 319 mg/dL (206-381)
[2020-05-07 13:24] LABS: Cancer Antigen 125 7.6 U/mL (0-35)
[2020-05-07 13:28] LABS: Ferritin 20 ng/mL (11-264)
[2020-05-07 13:58] LABS: Vitamin B12 585 pg/mL (239-931)
[2020-05-08 13:38] LABS: Free Kappa Lt Chains, Serum 23.4 mg/L (3.3-19.4); Free Lambda Lt Chains,Serum 16.7 mg/L (5.7-26.3)
[2020-05-11 11:08] LABS: Immunoglobulin A, Serum 253 mg/dL (87-352); Immunoglobulin G,Serum 895 mg/dL (586-1602); Immunoglobulin M, Serum 68 mg/dL (26-217)
[2020-05-11 11:36] LABS: Albumin 3.5 g/dL (2.9-4.4); Alpha-1-Globulin 0.3 g/dL (0.0-0.4); Alpha-2-Globulin 0.8 g/dL (0.4-1.0); Globulin Total 3.3 g/dL (2.2-3.9); Protein, Total 6.8 g/dL (6.0-8.5)
[2020-05-11 14:09] LABS: Beta-2-Microglobulin 3.3 mg/L (0.6-2.4)
[2020-05-13 03:09] LABS: Viscosity, Serum 1.6 rel.saline (1.4-2.1)
[2020-05-21 15:00] LABS: Immunoglobulin G, Quantitative 895; Immunoglobulin M, Quantitative 68
[2020-05-21 15:02] LABS: Immunoglobulin A 253
== END ==
PROVIDERS: PCP Physician Assistant; Referring Provider Internal Medicine; Visit Provider Internal Medicine
DX: D50.0 Iron deficiency anemia secondary to blood loss (chronic) (principal); I82.401 Acute embolism and thrombosis of unspecified deep veins of right lower extremity
CPT/HCPCS: 36415; 80053; 82232; 82607; 82728; 82746; 82784; 83540; 83550; 83883; 84155; 84165; 85025; 85045; 85810; 86304; 86334

== ENCOUNTER → 2020-06-05 11:26 | Outpatient (CLI) | payer OTHER, SELFPAY ==
[2020-06-05 12:00] LABS: Add Manual Diff / Slide Review NO; Basophils Absolute Auto 0 /uL (0-100); Basophils Percent Auto 0.6 % (0-2); Eosinophils Absolute Auto 200 /uL (0-450); Eosinophils Percent Auto 2.7 % (2-4); Hematocrit 36.6 % (36-46); Hemoglobin 11.7 g/dL (12.0-16.0); Lymphocytes Absolute Auto 1500 /uL (1100-4500); Lymphocytes Percent Auto 22.3 % (25-40); Mean Corpuscular Hemoglobin 24.9 PG (26-34); Mean Corpuscular Volume 77.7 fL (80-100); Monocytes Absolute Auto 500 /uL (0-900); Monocytes Percent Auto 7.5 % (3-14); Neutrophils Absolute Auto 4500 /uL (1500-7000); Neutrophils Percent Auto 66.9 % (50-75); Platelet Count 327 X10^3/uL (150-400); Red Blood Cell Count 4.71 X10^6/uL (4.0-5.2); Red Cell Distribution Width 27.8 % (11.6-14.8); White Blood Cell Count 6.7 X10^3/uL (4.5-11.0)
[2020-06-05 12:18] LABS: Anisocytosis 2+
[2020-06-05 12:26] LABS: HEMOLYSIS < 15 (0-50); Iron 71 ug/dL (37-170)
[2020-06-05 12:36] LABS: Percent Iron Saturation 19 % (15-50); Total Iron Binding Capacity 371 ug/dL (265-497); Transferrin 279 mg/dL (206-381)
[2020-06-05 13:02] LABS: Ferritin 15 ng/mL (11-264)
== END ==
PROVIDERS: PCP Physician Assistant; Referring Provider Internal Medicine; Visit Provider Internal Medicine
DX: Z85.43 Personal history of malignant neoplasm of ovary (principal); D50.0 Iron deficiency anemia secondary to blood loss (chronic)
CPT/HCPCS: 36415; 82728; 83540; 83550; 85025; 86304

== ENCOUNTER → 2020-07-17 15:12 | Outpatient (CLI) | payer OTHER, SELFPAY ==
--- NOTE | 2020-07-17 15:13 | DI.MG.S_ITS ---
BILATERAL DIGITAL SCREENING MAMMOGRAM 3D/2D WITH CAD: 07/17/2020 CLINICAL: Routine screening. Comparison is made to exams dated: 07/30/2018 mammogram, 06/22/2017 mammogram, 06/14/2016 mammogram, and 12/20/2016 mammogram - [facility]. The tissue of both breasts is predominantly fatty. Current study was also evaluated with a Computer Aided Detection (CAD) system. There are benign calcifications in both breasts. No significant masses, calcifications, or other findings are seen in either breast. There has been no significant interval change. IMPRESSION: BENIGN There is no mammographic evidence of malignancy. A 1 year screening mammogram is recommended. This exam was interpreted at Station ID: [id number]. NOTE: For mammograms, a report in lay terms will be sent to the patient. Approximately 15% of breast malignancies will not be visualized mammographically. In the management of a palpable breast mass, a negative mammogram must not discourage biopsy of a clinically suspicious lesion. Electronically Signed By: Eyad quarles/lore:07/17/2020 15:51:14 letter sent: Normal Exam ACR BI-RADS Category 2: Benign Finding(s) 3342F
== END ==
PROVIDERS: PCP Physician Assistant; Referring Provider Physician Assistant; Visit Provider Physician Assistant
DX: Z12.31 Encounter for screening mammogram for malignant neoplasm of breast (principal)
CPT/HCPCS: 77063; 77067

== ENCOUNTER → 2020-09-15 16:06 | Outpatient (CLI) | payer OTHER, SELFPAY ==
[2020-09-15 16:43] LABS: Add Manual Diff / Slide Review NO; Basophils Absolute Auto 0 /uL (0-100); Basophils Percent Auto 0.9 % (0-2); Eosinophils Absolute Auto 300 /uL (0-450); Eosinophils Percent Auto 4.8 % (2-4); Hemoglobin 12.5 g/dL (12.0-16.0); Lymphocytes Absolute Auto 2000 /uL (1100-4500); Lymphocytes Percent Auto 35.5 % (25-40); Mean Corpuscular HGB Conc 33.9 % (30-36); Mean Corpuscular Hemoglobin 28.9 PG (26-34); Mean Corpuscular Volume 85.4 fL (80-100); Monocytes Absolute Auto 400 /uL (0-900); Neutrophils Absolute Auto 2900 /uL (1500-7000); Neutrophils Percent Auto 50.8 % (50-75); Platelet Count 283 X10^3/uL (150-400); Red Blood Cell Count 4.33 X10^6/uL (4.0-5.2); Red Cell Distribution Width 14.7 % (11.6-14.8); White Blood Cell Count 5.6 X10^3/uL (4.5-11.0)
[2020-09-15 17:14] LABS: HEMOLYSIS < 15 (0-50); Iron 61 ug/dL (37-170)
[2020-09-15 17:26] LABS: Percent Iron Saturation 17 % (15-50); Total Iron Binding Capacity 368 ug/dL (265-497); Transferrin 284 mg/dL (206-381)
[2020-09-15 17:51] LABS: Ferritin 21 ng/mL (11-264)
== END ==
PROVIDERS: PCP Physician Assistant; Referring Provider Internal Medicine; Visit Provider Internal Medicine
DX: D50.0 Iron deficiency anemia secondary to blood loss (chronic) (principal); Z85.43 Personal history of malignant neoplasm of ovary
CPT/HCPCS: 36415; 82728; 83540; 83550; 85025

== ENCOUNTER → 2020-12-26 10:41 | Outpatient (CLI) | payer OTHER, SELFPAY ==
[2020-12-26 11:26] LABS: Add Manual Diff / Slide Review NO; Basophils Absolute Auto 0 /uL (0-100); Basophils Percent Auto 0.6 % (0-2); Eosinophils Absolute Auto 200 /uL (0-450); Eosinophils Percent Auto 3.1 % (2-4); Hematocrit 39.9 % (36-46); Hemoglobin 13.1 g/dL (12.0-16.0); Lymphocytes Absolute Auto 1500 /uL (1100-4500); Lymphocytes Percent Auto 24.3 % (25-40); Mean Corpuscular HGB Conc 32.8 % (30-36); Mean Corpuscular Hemoglobin 29.1 PG (26-34); Mean Corpuscular Volume 88.6 fL (80-100); Monocytes Absolute Auto 500 /uL (0-900); Monocytes Percent Auto 7.8 % (3-14); Neutrophils Absolute Auto 3900 /uL (1500-7000); Neutrophils Percent Auto 64.2 % (50-75); Platelet Count 275 X10^3/uL (150-400); Red Blood Cell Count 4.51 X10^6/uL (4.0-5.2); Red Cell Distribution Width 13.6 % (11.6-14.8); White Blood Cell Count 6.1 X10^3/uL (4.5-11.0)
[2020-12-26 11:41] LABS: HEMOLYSIS < 15 (0-50); Iron 74 ug/dL (37-170)
[2020-12-26 11:53] LABS: Percent Iron Saturation 21 % (15-50); Total Iron Binding Capacity 358 ug/dL (265-497); Transferrin 295 mg/dL (206-381)
[2020-12-26 12:15] LABS: Ferritin 21 ng/mL (11-264)
== END ==
PROVIDERS: PCP Physician Assistant; Referring Provider Internal Medicine; Visit Provider Internal Medicine
DX: D50.0 Iron deficiency anemia secondary to blood loss (chronic) (principal)
CPT/HCPCS: 36415; 82728; 83540; 83550; 85025

== ENCOUNTER → 2021-06-17 12:51 | Outpatient (CLI) | payer OTHER, SELFPAY ==
[2021-06-17 14:00] LABS: Add Manual Diff / Slide Review NO; Basophils Absolute Auto 0 /uL (0-100); Basophils Percent Auto 0.5 % (0-2); Eosinophils Absolute Auto 100 /uL (0-450); Eosinophils Percent Auto 2.3 % (2-4); Hematocrit 37.4 % (36-46); Hemoglobin 12.8 g/dL (12.0-16.0); Lymphocytes Absolute Auto 1400 /uL (1100-4500); Lymphocytes Percent Auto 23.3 % (25-40); Mean Corpuscular HGB Conc 34.3 % (30-36); Mean Corpuscular Hemoglobin 29.9 PG (26-34); Mean Corpuscular Volume 87.3 fL (80-100); Monocytes Absolute Auto 500 /uL (0-900); Monocytes Percent Auto 8.5 % (3-14); Neutrophils Absolute Auto 3800 /uL (1500-7000); Neutrophils Percent Auto 65.4 % (50-75); Platelet Count 284 X10^3/uL (150-400); Red Blood Cell Count 4.28 X10^6/uL (4.0-5.2); Red Cell Distribution Width 13.5 % (11.6-14.8); White Blood Cell Count 5.8 X10^3/uL (4.5-11.0)
[2021-06-17 14:18] LABS: HEMOLYSIS < 15 (0-50); Iron 65 ug/dL (37-170)
[2021-06-17 14:29] LABS: Percent Iron Saturation 18 % (15-50); Total Iron Binding Capacity 361 ug/dL (265-497); Transferrin 281 mg/dL (206-381)
== END ==
PROVIDERS: PCP Physician Assistant; Referring Provider Internal Medicine; Visit Provider Internal Medicine
DX: E61.1 Iron deficiency (principal); Z86.718 Personal history of other venous thrombosis and embolism
CPT/HCPCS: 36415; 83540; 83550; 85025

== ENCOUNTER → 2021-08-13 11:56 | Outpatient (CLI) | payer OTHER, SELFPAY ==
--- NOTE | 2021-08-13 11:57 | DI.MG.S_ITS ---
BILATERAL DIGITAL SCREENING MAMMOGRAM 3D/2D WITH CAD: 08/13/2021 CLINICAL: Routine screening. Comparison is made to exams dated: 07/17/2020 mammogram, 07/30/2018 mammogram, and 06/22/2017 mammogram - [facility]. The tissue of both breasts is predominantly fatty. Current study was also evaluated with a Computer Aided Detection (CAD) system. There are benign calcifications in both breasts. No significant masses, calcifications, or other findings are seen in either breast. There has been no significant interval change. IMPRESSION: BENIGN There is no mammographic evidence of malignancy. A 1 year screening mammogram is recommended. This exam was interpreted at Station ID: [id number]. NOTE: For mammograms, a report in lay terms will be sent to the patient. Approximately 15% of breast malignancies will not be visualized mammographically. In the management of a palpable breast mass, a negative mammogram must not discourage biopsy of a clinically suspicious lesion. Electronically Signed By: Vanessa floyd/lore:08/13/2021 14:31:08 letter sent: Normal Exam ACR BI-RADS Category 2: Benign Finding(s) 3342F
== END ==
PROVIDERS: PCP Physician Assistant; Referring Provider Physician Assistant; Visit Provider Physician Assistant
DX: Z12.31 Encounter for screening mammogram for malignant neoplasm of breast (principal); Z78.0 Asymptomatic menopausal state; Z13.820 Encounter for screening for osteoporosis; M85.89 Other specified disorders of bone density and structure, multiple sites
CPT/HCPCS: 77063; 77067; 77080

== ENCOUNTER → 2021-08-23 11:05 | Outpatient (CLI) | payer OTHER, SELFPAY ==
[2021-08-23 12:02] LABS: COVID19 -Nasal RAPID Negative (Negative)
== END ==
PROVIDERS: PCP Physician Assistant; Visit Provider Family Medicine Sleep Medicine
DX: Z20.822 Contact with and (suspected) exposure to COVID-19 (principal)
CPT/HCPCS: 87635; C9803

== ENCOUNTER 2021-08-24 07:51 | Day surgery (SDC) | payer OTHER, SELFPAY ==
[2021-08-24] MEDS: PROPARACAINE 0.5% OPHTH SOL 2 DROPS EYE-OP (08:10)
[2021-08-24] MEDS: CATARACT EYE COMPOUND (10 DROPS/SYRINGE) 3 DROPS EYE-OP (08:11)
[2021-08-24 08:13] VITALS: BP 123/81; PULSE 75; RESP 16; TEMP 36.8; O2SAT 100; BMI 34.2
--- NOTE | 2021-08-24 09:13 | PM.PREOP ---
Pre-operative Note Interval Note History & Physical reviewed/Exam performed by Physician: Yes Changes to H&P: No
--- NOTE | 2021-08-24 09:13 | PM.OP.1 ---
Operative Date/Time/Diagnoses Pre-op diagnosis: Nuclear cataract right eye Procedure & Clinicians Procedure: Cataract Surgery Same procedure as scheduled: Yes Surgeon: Solomon Ambrose Anesthesia Type: MAC +/- and Sedation Operative Notes Procedure in detail: Patient brought to the operating suite. Tetracaine drops placed in the right eye. Patient was prepped and draped in sterile manner. Wire lid speculum was placed in the eye. Betadine drops were placed on the eye. This was irrigated. Lidocaine jelly was placed on the eye. A paracentesis port was created with a side-port blade. 0.1 mL 1% preservative free lidocaine was injected into the anterior chamber. The anterior chamber was deepened with viscoelastic. 2.6 mm keratome was used to create a temporal clear corneal incision. Cystotome and Utrata forceps were used to create continuous tear capsulorrhexis. Balanced salt solution was used to hydro dissect the nucleus. The phacoemulsification handpiece was inserted and the nucleus was removed using the stop and chop technique. The irrigation aspiration handpiece was inserted and the remaining cortex was removed. Anterior chamber was deepened with viscoelastic. An [place] DIB00 intraocular lens with a power of 22.0 was injected into the capsular bag. Irrigation aspiration handpiece was inserted and the remaining viscoelastic was removed. Incision was hydrated with balanced salt solution and found to be leak free with pressure with Weck-Brea sponges. 0.1 mL Vigamox injected anterior chamber. 0.3 mL Kenalog 10 mg was injected subconjunctivally. Lid speculum was removed. The patient left the operating room in excellent condition. Complications: none Post-operative Condition: stable Disposition: same day surgery
--- NOTE | 2021-08-24 09:30 | SUR.OPER ---
Supine on eye stretcher, head on extension cradle secured with tape. Arms tucked at sides with blanket. Pillow under knees.
[2021-08-24] MEDS: HYALURONATE SODIUM 30 MG-10 MG/ML SYRINGES 1 BOX INTRAOCULA (09:36)
[2021-08-24] MEDS: MOXIFLOXACIN INJ 4 MG/0.8 ML VIAL 0.5 MG EYE-OP (09:37)
[2021-08-24] MEDS: PHENYLEPHRINE/LIDOCAINE VIAL (OR) 0.2 ML EYE-OP (09:37)
[2021-08-24] MEDS: TRIAMCINOLONE 50 MG/5 ML VIAL INJ (09:37)
[2021-08-24] MEDS: BALANCED SALT IRRIG SOLN NO.2 500 ML, EPINEPHrine 1 MG IRR (09:37)
[2021-08-24] MEDS: TETRACAINE 0.5% OPHTH DROPS 4 ML 2 DROPS EYE-OP (09:38)
[2021-08-24] MEDS: LIDOCAINE 2% (GLYDO) 6 ML GEL TOP (09:38)
[2021-08-24 09:48] VITALS: BP 131/81; PULSE 66; RESP 16; TEMP 36.4; O2SAT 97
== END 2021-08-24 10:01 | disposition home or self-care (01) ==
PROVIDERS: PCP Physician Assistant; Referring Provider Ophthalmology; Visit Provider Ophthalmology
PROC: (CPT 66984; principal; 2021-08-24 09:15)
DX: H25.11 Age-related nuclear cataract, right eye (principal); I10 Essential (primary) hypertension; E11.9 Type 2 diabetes mellitus without complications; D64.9 Anemia, unspecified; Z86.711 Personal history of pulmonary embolism; Z79.01 Long term (current) use of anticoagulants
CPT/HCPCS: 66984; J0171; J2250; J3301

== ENCOUNTER → 2021-10-13 10:56 | Outpatient (CLI) | payer OTHER, SELFPAY ==
[2021-10-13 12:35] LABS: Add Manual Diff / Slide Review NO; Basophils Absolute Auto 0 /uL (0-100); Basophils Percent Auto 0.6 % (0-2); Eosinophils Absolute Auto 200 /uL (0-450); Eosinophils Percent Auto 2.5 % (2-4); Hematocrit 36.9 % (36-46); Hemoglobin 12.7 g/dL (12.0-16.0); Lymphocytes Absolute Auto 1200 /uL (1100-4500); Lymphocytes Percent Auto 20.2 % (25-40); Mean Corpuscular HGB Conc 34.3 % (30-36); Mean Corpuscular Hemoglobin 29.8 PG (26-34); Mean Corpuscular Volume 86.9 fL (80-100); Monocytes Absolute Auto 400 /uL (0-900); Monocytes Percent Auto 7.1 % (3-14); Neutrophils Absolute Auto 4200 /uL (1500-7000); Neutrophils Percent Auto 69.6 % (50-75); Platelet Count 243 X10^3/uL (150-400); Red Blood Cell Count 4.24 X10^6/uL (4.0-5.2); Red Cell Distribution Width 13.3 % (11.6-14.8); White Blood Cell Count 6.1 X10^3/uL (4.5-11.0)
[2021-10-13 13:27] LABS: HEMOLYSIS < 15 (0-50); Iron 99 ug/dL (37-170)
[2021-10-13 13:29] LABS: Ferritin 32 ng/mL (11-264)
[2021-10-13 13:38] LABS: Percent Iron Saturation 28 % (15-50); Total Iron Binding Capacity 354 ug/dL (265-497); Transferrin 251 mg/dL (206-381)
== END ==
PROVIDERS: PCP Physician Assistant; Referring Provider Internal Medicine; Visit Provider Internal Medicine
DX: D50.9 Iron deficiency anemia, unspecified (principal); D68.59 Other primary thrombophilia
CPT/HCPCS: 36415; 82728; 83540; 83550; 85025

== ENCOUNTER → 2022-08-26 15:03 | Outpatient (CLI) | payer OTHER, SELFPAY ==
--- NOTE | 2022-08-26 | DI.MG.S_ITS ---
BILATERAL DIGITAL SCREENING MAMMOGRAM 3D/2D WITH CAD: 08/26/2022 CLINICAL: Routine screening. Comparison is made to exams dated: 08/13/2021 mammogram, 08/13/2021 mammogram, and 07/17/2020 mammogram - [facility]. Both breasts are almost entirely fatty (category a/<25% glandular tissue). Current study was also evaluated with a Computer Aided Detection (CAD) system. There are benign calcifications in both breasts. No significant masses, calcifications, or other findings are seen in either breast. There has been no significant interval change. IMPRESSION: BENIGN There is no mammographic evidence of malignancy. A 1 year screening mammogram is recommended. Based on the Tyrer Cuzick model (a risk assessment model) the patient's lifetime risk is 3.6% and her 10 year risk is 2.7%. According to the ACR, ACS, and NCCN guidelines, an annual breast MRI exam along with mammogram is recommended if the patient's lifetime risk is 20% or greater. This exam was interpreted at Station ID: [id number]. NOTE: For mammograms, a report in lay terms will be sent to the patient. Approximately 15% of breast malignancies will not be visualized mammographically. In the management of a palpable breast mass, a negative mammogram must not discourage biopsy of a clinically suspicious lesion. Electronically Signed By: Manan cuenca/lore:08/26/2022 17:02:12 letter sent: Normal Exam ACR BI-RADS Category 2: Benign Finding(s) 3342F
== END ==
PROVIDERS: PCP Physician Assistant; Referring Provider Physician Assistant; Visit Provider Physician Assistant
DX: Z12.31 Encounter for screening mammogram for malignant neoplasm of breast (principal)
CPT/HCPCS: 77063; 77067

== ENCOUNTER → 2023-09-22 12:51 | Outpatient (CLI) | payer MEDICARE, SELFPAY ==
--- NOTE | 2023-09-22 | DI.MG.S_ITS ---
BILATERAL DIGITAL SCREENING MAMMOGRAM 3D/2D WITH CAD: 09/22/2023 CLINICAL: Routine screening. Comparison is made to exams dated: 08/26/2022 mammogram, 08/13/2021 mammogram, 08/13/2021 mammogram, and 07/17/2020 mammogram - [facility]. Both breasts are almost entirely fatty (category a/<25% glandular tissue). Current study was also evaluated with a Computer Aided Detection (CAD) system. There are benign calcifications in the left breast. No significant masses, calcifications, or other findings are seen in either breast. There has been no significant interval change. IMPRESSION: BENIGN There is no mammographic evidence of malignancy. A 1 year screening mammogram is recommended. Based on the Tyrer Cuzick model (a risk assessment model) the patient's lifetime risk is 3.4% and her 10 year risk is 2.7%. According to the ACR, ACS, and NCCN guidelines, an annual breast MRI exam along with mammogram is recommended if the patient's lifetime risk is 20% or greater. This exam was interpreted at Station ID: [id number]. NOTE: For mammograms, a report in lay terms will be sent to the patient. Approximately 15% of breast malignancies will not be visualized mammographically. In the management of a palpable breast mass, a negative mammogram must not discourage biopsy of a clinically suspicious lesion. Electronically Signed By: Edgard wood/lore:09/22/2023 14:45:18 letter sent: Normal Exam ACR BI-RADS Category 2: Benign Finding(s) 3342F
== END ==
PROVIDERS: PCP Physician Assistant; Referring Provider Physician Assistant; Visit Provider Physician Assistant
DX: Z12.31 Encounter for screening mammogram for malignant neoplasm of breast (principal); R92.313 Mammographic fatty tissue density, bilateral breasts
CPT/HCPCS: 77063; 77067

== ENCOUNTER → 2025-04-05 14:19 | Outpatient (CLI) | payer MEDICARE, SELFPAY ==
--- NOTE | 2025-04-05 14:21 | DI.MG.S_ITS ---
MM screening mammo BI: 04/05/2025. BI-RADS: 1 CLINICAL: 74-year old female for bilateral screening mammogram. Tyrer-Cuzick lifetime risk of 2.0%. No personal or first-degree family history of breast cancer. Personal history of ovarian cancer. PRIOR EXAMS 09/22/2023, 08/26/2022, 08/13/2021, 07/17/2020, MAMMOGRAPHY TECHNIQUE: 2D and 3D (tomosynthesis) digital mammographic views obtained, with additional images as needed for full coverage. Current study was also evaluated with a Computer Aided Detection (CAD) system. DENSITY A. The breasts are almost entirely fatty. MAMMOGRAPHY FINDINGS Bilateral: No suspicious mass, asymmetry, microcalcification, or other abnormality seen. IMPRESSION: * No evidence of malignancy. RECOMMENDATIONS Bilateral * Annual screening mammography. OVERALL ASSESSMENT CATEGORY BI-RADS-1: Negative. The [employer] recommends annual screening mammography beginning at age 40 for women with average risk of breast cancer. ELECTRONICALLY SIGNED: Manan Tyler M.D. on 04/09/2025 at 10:58:11 AM PT Interpreting Station ID: [id number]
== END ==
LOC: MAMMO 14:20
PROVIDERS: PCP Physician Assistant; Referring Provider Physician Assistant; Visit Provider Physician Assistant
DX: Z12.31 Encounter for screening mammogram for malignant neoplasm of breast (principal); R92.313 Mammographic fatty tissue density, bilateral breasts; Z85.43 Personal history of malignant neoplasm of ovary
CPT/HCPCS: 77063; 77067